=== PATIENT | male | born 1970 | race Two or more races ===

== ENCOUNTER → 2019-11-22 | Emergency (ER) | payer BC, OTHER ==
[~2019-11-22] VITALS: Ht 172.7 cm; Wt 96.6 kg
[~2019-11-22] MED LIST: ASCORBIC ACID 500 MG TAB PO ONE; DEXTSYP35 PO; DOXYCYCLINE 100 MG TAB/CAP PO ONE; DexAMETHasone SOD PHOS 10MG/1ML VIAL INJ IV ONE; LEVO750T8 PO; METH4PAK PO; ZINC SULFATE 220mg CAP or TAB PO ONE; cefTRIAXone 1GM/50ML D5W 50 ML IV ONE
[2019-11-22 06:54] LABS: Basophils # (auto) 0 10 ^3/uL (0-0.2); Basophils % (auto) 0.2 % (0.0-2.0); Eosinophils # (auto) 0 10 ^3/uL (0-0.8); Eosinophils % (auto) 0.7 % (0.0-7.0); Hemoglobin 16.7 g/dL (13.5-17.5); Lymphocytes # (auto) 1.3 10 ^3/uL (0.4-5.4); Lymphocytes % (auto) 29.7 % (10.0-50.0); Mean Corpuscular Hemoglobin 31.9 pg (28.0-32.0); Mean Corpuscular Hgb Conc. 34.1 g/dL (32.0-36.0); Mean Corpuscular Volume 93.5 fL (80.0-100.0); Monocytes # (auto) 0.5 10 ^3/uL (0-1.3); Monocytes % (auto) 11.4 % (0.0-12.0); Neutrophils # (auto) 2.4 10 ^3/uL (1.6-8.6); Nucleated Red Blood Cells % 0.5 %; Platelet Count (auto) 82 10^3/uL (140-450); Red Blood Cells 5.24 10^6/uL (4.5-5.90); Red Cell Distribution Width 13.6 % (11.8-14.3); White Blood Cell 4.2 10^3/uL (4.4-10.8)
[2019-11-22 06:58] LABS: Urine Bacteria NONE SEEN /hpf (None Seen); Urine Blood Negative /uL (Negative); Urine Mucus FEW (None Seen); Urine Specific Gravity 1.023 (1.001-1.035); Urine WBC 2 /hpf (0 - 3)
[2019-11-22 07:07] LABS: INR 1.01 (0.9-1.15); Partial Thromboplastin Time 31.1 sec (23.64-32.05)
[2019-11-22 07:13] LABS: Albumin 3.4 g/dL (3.4-5.0); Amylase 52 U/L (25-115); Anion Gap 5 (5-15); Blood Urea Nitrogen 9 mg/dL (7-18); Calcium 8.5 mg/dL (8.5-10.1); Carbon Dioxide 27 mmol/L (21-32); Chloride 100 mmol/L (98-107); Glucose 164 mg/dL (74-106); Lipase 137 U/L (73-393); Potassium 3.7 mmol/L (3.5-5.1); Sodium 132 mmol/L (136-145)
[2019-11-22 07:19] LABS: Alanine Aminotransferase 312 U/L (16-61); Alkaline Phosphatase 131 U/L (45-117); Aspartate Aminotransferase 181 U/L (15-37); BUN/Creatinine Ratio 9.9; Bilirubin, Total 0.8 mg/dL (0.2-1.0); GFR African American 113 mL/min; GFR Non-African American 94 mL/min
[2019-11-22 07:26] LABS: CRP High Sensitivity 4.53 mg/dL (< 0.3)
[2019-11-22 10:00] VITALS: BP 146/74
== END | disposition home or self-care (01) ==
LOC: ER 04:39
DX: U07.1 COVID-19 (principal); J18.9 Pneumonia, unspecified organism; R10.84 Generalized abdominal pain; Z88.0 Allergy status to penicillin
CPT/HCPCS: 36415; 71046; 74176; 80053; 81001; 82150; 82728; 82962; 83615; 83690; 83735; 84484; 85025; 85610; 85730; 86141; 87070; 87804; 87880; 93005; 96365; 96375; 99285; C9803; J0696; J1100; U0003

== ENCOUNTER 2023-01-02 22:43 | Emergency (ER) | payer OTHER ==
[~2023-01-02] VITALS: Ht 172.7 cm; Wt 90.9 kg
[~2023-01-02 22:43] MED LIST changes: -ASCORBIC ACID 500 MG TAB PO ONE; -DOXYCYCLINE 100 MG TAB/CAP PO ONE; -DexAMETHasone SOD PHOS 10MG/1ML VIAL INJ IV ONE; -ZINC SULFATE 220mg CAP or TAB PO ONE; -cefTRIAXone 1GM/50ML D5W 50 ML IV ONE
[2023-01-02 23:07] VITALS: BP 130/90; PULSE 109; RESP 18; O2SAT 97
[2023-01-02] MEDS ORDERED: TETANUS-DIPTH-ACEL PERTUSSIS 0.5ML SYR Tdap IM ONE (23:45)
[2023-01-03] MEDS ORDERED: MAX35OO TOP (00:24)
[2023-01-03] MEDS ORDERED: IBUP-1455 PO (00:24)
== END 2023-01-03 01:15 | disposition left against medical advice (07) ==
LOC: ER 22:48
DX: S01.01XA Laceration without foreign body of scalp, initial encounter (principal); J45.909 Unspecified asthma, uncomplicated; E11.9 Type 2 diabetes mellitus without complications; F17.210 Nicotine dependence, cigarettes, uncomplicated; F12.90 Cannabis use, unspecified, uncomplicated; Z88.0 Allergy status to penicillin; Z79.899 Other long term (current) drug therapy; Y08.89XA Assault by other specified means, initial encounter; Y93.89 Activity, other specified; Y92.89 Other specified places as the place of occurrence of the external cause; Y99.8 Other external cause status
CPT/HCPCS: 70450; 90471; 90715